=== PATIENT | female | born 1985 | race Caucasian/White ===

== ENCOUNTER 2023-02-28 19:58 | Emergency (ER) | payer SELFPAY ==
[~2023-02-28] VITALS: Ht 180.3 cm; Wt 77.0 kg
[~2023-02-28 19:58] MED LIST: B12 INJECTION; CONCERTA54 MG PO; LEVOTHYROXINE PO; MIRALAX MIX-IN17 GM; PANTOPRAZOLE; PERCOCET 5/325M1 TAB PO; VITAMIN D PO; ZITHROMAX500 MG PO
[2023-02-28 20:15] VITALS: BP 124/58
[2023-02-28] MEDS ORDERED: LEVOTHYROXIN50 MCG PO (20:39)
[2023-02-28] MEDS ORDERED: PROTONIX40 M2 PO (20:40)
[2023-02-28] MEDS ORDERED: [UNRECOGNIZED DRUG - OTHER] (20:40)
[2023-02-28] MEDS ORDERED: PHILLIPS MOM311 MG PO (20:41)
[2023-02-28] MEDS ORDERED: OS-CAL 500500 M1 PO (20:42)
[2023-02-28 21:16] LABS: BASO% 0.8 % (0-3); EOS% 1.1 % (0-8); HEMATOCRIT 42.8 % (37.0-47.0); IMMATURE GRANULOCYTES 0.1 % (0.0-5.0); LYMPH% 37.9 % (15-41); MEAN CELL VOLUME 84.9 fL CALC (80.0-100.0); MEAN CORPUSCULAR HGB 27.8 pG CALC (26.0-32.0); MEAN CORPUSCULAR HGB CONC 32.7 g/dL CAL (32.0-36.0); MONO% 6.4 % (2-13); NEUT# 4.6 thou/uL (2.00-7.15); NEUT% 53.7 % (42-76); RED BLOOD COUNT 5.04 mill/uL (4.20-5.60); RED CELL DISTRI WIDTH 12.7 % (11.5-15.5)
[2023-02-28 21:25] LABS: ALKALINE PHOSPHATASE 78 u/l (38-126); BUN 21 mg/dL (7-17); BUN/CREATININE RATIO 27 (12-20 (CALC)); CARBON DIOXIDE 25 mmol/l (22-30); CHLORIDE 104 mmol/l (95-108); CREATININE 0.8 mg/dL (0.5-1.0); GFR FOR AFR.AMER. > 60 ML/MIN (>=60 (CALC)); GFR OTHER RACES > 60 ML/MIN (>=60 (CALC)); LIPASE 68 u/l (23-300); SGOT/AST 39 u/l (14-36); SODIUM 140 mmol/l (137-146)
[2023-02-28 21:28] LABS: ANION GAP 15 (6-22 (CALC)); BILIRUBIN, TOTAL 1.3 mg/dL (0.02-1.3); POTASSIUM 3.5 mmol/l (3.5-5.1); TOTAL PROTEIN 8.7 g/dL (6.3-8.2)
[2023-02-28 22:42] LABS: URINE BLOOD DIPSTICK MODERATE (NEGATIVE); URINE COLOR YELLOW; URINE GLUCOSE - DIPSTICK NEGATIVE (NEGATIVE); URINE KETONE 15 mg/dL (NEGATIVE); URINE LEUK ESTERASE NEGATIVE (NEGATIVE); URINE PROTEIN - DIPSTICK TRACE mg/dL (NEG-TRACE)
[2023-02-28 22:46] LABS: URINE BILIRUBIN - DIPSTICK SEE COMMNET (NEGATIVE)
[2023-02-28 22:47] LABS: URINE NITRITE - DIPSTICK NEGATIVE (Negative)
[2023-02-28 22:53] LABS: URINE SQUAMOUS EPITHELIAL CELL FEW EPI/hpf (0-FEW)
[2023-02-28 23:02] VITALS: BP 110/66
[2023-02-28 23:30] VITALS: BP 123/77
[2023-03-01] VITALS: BP 123/78
[2023-03-01 00:30] VITALS: BP 126/83
[2023-03-01] MEDS ORDERED: PERCOCET 5/325M1 TAB PO (00:55)
[2023-03-01] MEDS ORDERED: MACROBID100 M1 PO (00:57)
[2023-03-01 02:08] VITALS: BP 122/78
== END 2023-03-01 02:08 | disposition home or self-care (01) | DRG 694 ==
LOC: ED 19:58
PROVIDERS: Emergency Medicine
DX: N13.30 Unspecified hydronephrosis (principal); E06.3 Autoimmune thyroiditis
CPT/HCPCS: Q9967

== ENCOUNTER 2023-05-19 16:15 | Emergency (ER) | payer OTHER ==
[2023-05-19] VITALS (12 sets, daily range): BP systolic 108–138; BP diastolic 46–110
[~2023-05-19] VITALS: Ht 180.3 cm; Wt 77.2 kg
[~2023-05-19 16:15] MED LIST changes: +LEVOTHYROXIN50 MCG PO; +MACROBID100 M1 PO; +OS-CAL 500500 M1 PO; +PHILLIPS MOM311 MG PO; +PROTONIX40 M2 PO; +[UNRECOGNIZED DRUG - OTHER]
[2023-05-19 17:31] LABS: BASO% 0.1 % (0-3); HEMATOCRIT 38.9 % (37.0-47.0); HEMOGLOBIN 12.6 g/dl (12.0-16.0); IMMATURE GRANULOCYTES 0.1 % (0.0-5.0); LYMPH% 5.6 % (15-41); MEAN CELL VOLUME 87.6 fL CALC (80.0-100.0); MEAN CORPUSCULAR HGB 28.4 pG CALC (26.0-32.0); MEAN CORPUSCULAR HGB CONC 32.4 g/dL CAL (32.0-36.0); MONO% 3.4 % (2-13); NEUT# 14.37 thou/uL (2.00-7.15); NEUT% 90.8 % (42-76); RED BLOOD COUNT 4.44 mill/uL (4.20-5.60); RED CELL DISTRI WIDTH 12.5 % (11.5-15.5)
[2023-05-19 17:45] LABS: ALBUMIN 4.1 g/dL (3.2-5.0); ALKALINE PHOSPHATASE 93 u/l (38-126); ANION GAP 12 (6-22 (CALC)); BILIRUBIN, TOTAL 0.7 mg/dL (0.02-1.3); BUN 20 mg/dL (7-17); BUN/CREATININE RATIO 22 (12-20 (CALC)); CARBON DIOXIDE 25 mmol/l (22-30); CHLORIDE 103 mmol/l (95-108); CREATININE 0.9 mg/dL (0.5-1.0); GFR FOR AFR.AMER. > 60 ML/MIN (>=60 (CALC)); GFR OTHER RACES > 60 ML/MIN (>=60 (CALC)); LIPASE 46 u/l (23-300); POTASSIUM 3.7 mmol/l (3.5-5.1); SGOT/AST 47 u/l (14-36); SODIUM 136 mmol/l (137-146); TOTAL PROTEIN 7.5 g/dL (6.3-8.2)
[2023-05-19] MEDS ORDERED: HYDROCO/APAP1 TA9 PO (18:15)
== END 2023-05-19 18:43 | disposition home or self-care (01) ==
LOC: ED 16:15
PROVIDERS: Family Medicine
DX: R10.9 Unspecified abdominal pain (principal); E03.9 Hypothyroidism, unspecified; Z98.84 Bariatric surgery status; Z98.890 Other specified postprocedural states

== ENCOUNTER 2023-05-31 11:34 | Emergency (ER) | payer OTHER ==
[~2023-05-31] VITALS: Ht 180.3 cm; Wt 78.6 kg
[2023-05-31] VITALS (18 sets, daily range): BP systolic 102–125; BP diastolic 49–106
[~2023-05-31 11:34] MED LIST changes: +HYDROCO/APAP1 TA9 PO
[2023-05-31 12:37] LABS: BASO% 0.1 % (0-3); HEMATOCRIT 41.6 % (37.0-47.0); HEMOGLOBIN 13.5 g/dl (12.0-16.0); IMMATURE GRANULOCYTES 0.5 % (0.0-5.0); LYMPH% 2.1 % (15-41); MEAN CELL VOLUME 86.8 fL CALC (80.0-100.0); MEAN CORPUSCULAR HGB 28.2 pG CALC (26.0-32.0); MEAN CORPUSCULAR HGB CONC 32.5 g/dL CAL (32.0-36.0); MONO% 2.6 % (2-13); NEUT# 27.88 thou/uL (2.00-7.15); NEUT% 94.7 % (42-76); RED BLOOD COUNT 4.79 mill/uL (4.20-5.60); RED CELL DISTRI WIDTH 12.5 % (11.5-15.5)
[2023-05-31 12:38] LABS: URINE BLOOD DIPSTICK Moderate (NEGATIVE); URINE GLUCOSE - DIPSTICK Negative (NEGATIVE); URINE KETONE Trace mg/dL (NEGATIVE); URINE NITRITE - DIPSTICK Negative (Negative); URINE PROTEIN - DIPSTICK >=300 mg/dL (NEG-TRACE); URINE SPECIFIC GRAVITY 1.025; URINE UROBILINOGEN - DIPSTICK 0.2 E.U./dL (0.2)
[2023-05-31 12:44] LABS: URINE COLOR Yellow; URINE LEUK ESTERASE Small (NEGATIVE)
[2023-05-31 12:54] LABS: ALBUMIN 4.5 g/dL (3.2-5.0); ALKALINE PHOSPHATASE 87 u/l (38-126); ANION GAP 14 (6-22 (CALC)); BUN 21 mg/dL (7-17); BUN/CREATININE RATIO 23 (12-20 (CALC)); C-REACTIVE PROTEIN 7.5 mg/dL (0-0.9); CARBON DIOXIDE 26 mmol/l (22-30); CHLORIDE 98 mmol/l (95-108); CREATININE 0.9 mg/dL (0.5-1.0); GFR FOR AFR.AMER. > 60 ML/MIN (>=60 (CALC)); GFR OTHER RACES > 60 ML/MIN (>=60 (CALC)); POTASSIUM 3.9 mmol/l (3.5-5.1); SGOT/AST 38 u/l (14-36); SODIUM 135 mmol/l (137-146); TOTAL PROTEIN 8.4 g/dL (6.3-8.2)
[2023-05-31 12:58] LABS: BILIRUBIN, TOTAL 1.8 mg/dL (0.02-1.3)
[2023-05-31 13:06] LABS: URINE BACTERIA MODERATE hpf; URINE SQUAMOUS EPITHELIAL CELL MANY EPI/hpf (0-FEW); URINE WBC 50-100 WBC/hpf (0-5)
[2023-05-31] MEDS ORDERED: PRENATAL/FE PO (13:40)
== END 2023-05-31 17:50 ==
LOC: ED 11:34
PROVIDERS: Nurse Practitioner
DX: N12 Tubulo-interstitial nephritis, not specified as acute or chronic (principal); T83.123A Displacement of other urinary stents, initial encounter; E03.9 Hypothyroidism, unspecified; Y83.1 Surgical operation with implant of artificial internal device as the cause of abnormal reaction of the patient, or of later complication, without mention of misadventure at the time of the procedure; Z98.84 Bariatric surgery status; Z20.822 Contact with and (suspected) exposure to COVID-19
CPT/HCPCS: Q9967

== ENCOUNTER 2024-03-26 05:56 | Emergency (ER) | payer OTHER ==
[2024-03-26] VITALS (9 sets, daily range): BP systolic 102–130; BP diastolic 57–69
[~2024-03-26] VITALS: Ht 180.3 cm; Wt 79.3 kg
[~2024-03-26 05:56] MED LIST changes: +LEVOFLOXACIN250 M1 PO; +LEVOFLOXACIN750 MG PO; +PRENATAL/FE PO; +TRAMADOL HYDROC50 M1 PO; +ZOFRAN4 MG/TAB PO
[2024-03-26] MEDS ORDERED: SODIUM CHLORIDE 0.9% 1,000 ML IV STA (06:09)
[2024-03-26] MEDS ORDERED: KETOROLAC TROMETHAMINE 30 MG/ML SDV IV ONE (06:10)
[2024-03-26] MEDS ORDERED: PROMETHAZINE HCL 25 MG/ML AMP IV ONE (06:10)
[2024-03-26] MEDS ORDERED: ACETAMINOPHEN 500 MG TAB PO ONE (06:10)
[2024-03-26] MEDS ORDERED: DiphenhydrAMINE HCL 50 MG/ML SDV IV ONE (06:10)
[2024-03-26 06:41] LABS: BASO% 0.3 % (0-3); EOS% 0.9 % (0-8); IMMATURE GRANULOCYTES 0.3 % (0.0-5.0); LYMPH% 9.6 % (15-41); MEAN CELL VOLUME 85.8 fL CALC (80.0-100.0); MEAN CORPUSCULAR HGB CONC 32.6 g/dL CAL (32.0-36.0); MONO% 8.5 % (2-13); NEUT# 9.38 thou/uL (2.00-7.15); NEUT% 80.4 % (42-76); RED BLOOD COUNT 3.93 mill/uL (4.20-5.60); RED CELL DISTRI WIDTH 13.8 % (11.5-15.5)
[2024-03-26 06:42] LABS: HEMATOCRIT 33.7 % (37.0-47.0)
[2024-03-26 06:59] LABS: ALBUMIN 3.9 g/dL (3.2-5.0); CREATININE 0.6 mg/dL (0.5-1.0); POTASSIUM 3.7 mmol/l (3.5-5.1); TOTAL PROTEIN 7.2 g/dL (6.3-8.2)
[2024-03-26 07:00] LABS: BILIRUBIN, TOTAL 0.6 mg/dL (0.02-1.3)
[2024-03-26] MEDS ORDERED: SODIUM CHLORIDE 0.9% 1,000 ML IV ONE ×3 (07:20→09:52)
[2024-03-26] MEDS ORDERED: cefTRIAXone SODIUM 2 GM in SODIUM CHLORIDE 0.9% 100 ML IV ONE (07:25)
[2024-03-26 07:41] LABS: URINE BILIRUBIN - DIPSTICK Negative (NEGATIVE); URINE BLOOD DIPSTICK Small (NEGATIVE); URINE GLUCOSE - DIPSTICK Negative (NEGATIVE); URINE KETONE Trace mg/dL (NEGATIVE); URINE NITRITE - DIPSTICK Negative (Negative); URINE PROTEIN - DIPSTICK 30 mg/dL (NEG-TRACE)
[2024-03-26 07:44] LABS: URINE BACTERIA FEW hpf; URINE COLOR Yellow; URINE EPITHELIAL CELLS FEW EPI/hpf (0-FEW); URINE LEUK ESTERASE Moderate (NEGATIVE)
[2024-03-26] MEDS ORDERED: ERTAPENEM 1 GM in SODIUM CHLORIDE 0.9% 50 ML IV ONE (09:00)
[2024-03-26] MEDS ORDERED: SODIUM CHLORIDE 0.9% 0 ML IV ONE (09:04)
== END 2024-03-26 11:02 ==
LOC: ED 05:56
PROVIDERS: Family Medicine
DX: N13.6 Pyonephrosis (principal); B96.1 Klebsiella pneumoniae [K. pneumoniae] as the cause of diseases classified elsewhere; E06.3 Autoimmune thyroiditis; Z96.0 Presence of urogenital implants; Z98.84 Bariatric surgery status
CPT/HCPCS: J1335

== ENCOUNTER 2024-04-20 04:46 | Emergency (ER) | payer OTHER ==
[~2024-04-20] VITALS: Ht 180.3 cm; Wt 79.0 kg
[2024-04-20] VITALS (12 sets, daily range): BP systolic 94–124; BP diastolic 51–72
[2024-04-20] MEDS ORDERED: SODIUM CHLORIDE 0.9% 1,000 ML IV STA (05:13)
[2024-04-20] MEDS ORDERED: ACETAMINOPHEN 500 MG TAB PO ONE (05:15)
[2024-04-20] MEDS ORDERED: DiphenhydrAMINE HCL 50 MG/ML SDV IV ONE (05:20)
[2024-04-20] MEDS ORDERED: PROMETHAZINE HCL 25 MG/ML AMP IV ONE (05:20)
[2024-04-20] MEDS ORDERED: KETOROLAC TROMETHAMINE 30 MG/ML SDV IV ONE (05:20)
[2024-04-20 06:02] LABS: URINE BILIRUBIN - DIPSTICK Negative (NEGATIVE); URINE BLOOD DIPSTICK Moderate (NEGATIVE); URINE GLUCOSE - DIPSTICK Negative (NEGATIVE); URINE KETONE 15 mg/dL (NEGATIVE); URINE PROTEIN - DIPSTICK 30 mg/dL (NEG-TRACE)
[2024-04-20 06:09] LABS: BASO% 0.2 % (0-3); HEMATOCRIT 33.7 % (37.0-47.0); HEMOGLOBIN 11.3 g/dl (12.0-16.0); IMMATURE GRANULOCYTES 0.3 % (0.0-5.0); LYMPH% 4.8 % (15-41); MEAN CELL VOLUME 83.2 fL CALC (80.0-100.0); MEAN CORPUSCULAR HGB 27.9 pG CALC (26.0-32.0); MEAN CORPUSCULAR HGB CONC 33.5 g/dL CAL (32.0-36.0); MONO% 8.4 % (2-13); NEUT# 13.99 thou/uL (2.00-7.15); NEUT% 86.3 % (42-76); RED BLOOD COUNT 4.05 mill/uL (4.20-5.60); RED CELL DISTRI WIDTH 13.9 % (11.5-15.5)
[2024-04-20 06:14] LABS: URINE COLOR Yellow; URINE LEUK ESTERASE Small (NEGATIVE)
[2024-04-20 06:15] LABS: URINE NITRITE - DIPSTICK Negative (Negative)
[2024-04-20 06:18] LABS: URINE BACTERIA MODERATE hpf; URINE EPITHELIAL CELLS MODERATE EPI/hpf (0-FEW); URINE RBC 25-50 RBC/hpf (0-5)
[2024-04-20 06:33] LABS: ALBUMIN 3.9 g/dL (3.2-5.0); CREATININE 0.8 mg/dL (0.5-1.0); MAGNESIUM 1.7 mg/dL (1.6-2.3); POTASSIUM 3.6 mmol/l (3.5-5.1); TOTAL PROTEIN 7.2 g/dL (6.3-8.2)
[2024-04-20 06:34] LABS: BILIRUBIN, TOTAL 1.7 mg/dL (0.02-1.3)
[2024-04-20] MEDS ORDERED: cefTRIAXone SODIUM 2 GM in SODIUM CHLORIDE 0.9% 100 ML IV ONE (06:40)
[2024-04-20] MEDS ORDERED: SODIUM CHLORIDE 0.9% 1,000 ML IV ONE (08:10)
== END 2024-04-20 09:11 ==
LOC: ED 04:46
PROVIDERS: Family Medicine
DX: T83.592A Infection and inflammatory reaction due to indwelling ureteral stent, initial encounter (principal); N12 Tubulo-interstitial nephritis, not specified as acute or chronic; B96.20 Unspecified Escherichia coli [E. coli] as the cause of diseases classified elsewhere; E03.9 Hypothyroidism, unspecified; Y83.1 Surgical operation with implant of artificial internal device as the cause of abnormal reaction of the patient, or of later complication, without mention of misadventure at the time of the procedure; Z87.442 Personal history of urinary calculi; Z20.822 Contact with and (suspected) exposure to COVID-19
CPT/HCPCS: Q9967